=== PATIENT | male | born 1950 ===

== ENCOUNTER 2024-05-29 12:18 | Day surgery (SDC) | payer OTHER ==
[2024-05-29] MEDS: LACTATED RINGERS 1,000 ML IV ONE (12:51)
[2024-05-29] MEDS ORDERED: PROPOFOL 500 MG/50 ML 500 MG/50 ML VIAL ONE (14:26)
--- NOTE | 2024-05-29 14:31 | ANESTHESIA ---
Pre-Anesthesia VS, & Labs - Diagnosis screening - Procedure colonoscopy Vital Signs: Temp Pulse Resp BP Pulse Ox O2 Flow Rate 36.4 C L 80 18 148/91 H 98 05/29/24 12:30 05/29/24 12:30 05/29/24 12:30 05/29/24 12:30 05/29/24 12:30 Height: 6 ft Weight (kg): 93.8 kg Body Mass Index: 28.0 BMI Classification: Overweight - NPO >8 hours Home Medications and Allergies Home Medications: Ambulatory Orders Aspirin [Adult Aspirin Regimen] 81 mg PO DAILY 05/29/24 Aspirin [Adult Aspirin Regimen] 81 mg PO DAILY 05/29/24 Allergies/Adverse Reactions: Allergies Allergy/AdvReac Type Severity Reaction Status Date / Time No Known Drug Allergies Allergy Verified 05/28/24 13:35 Anes History & Medical History - Anesthetic History Anesthesia Complications: reports: No previous complications Family history of Anesthesia Complications: Denies Family history of Malignant Hyperthermia: Denies - Medical History Cardiovascular: reports: None Pulmonary: reports: None Gastrointestinal: reports: None Urinary: reports: Benign prostate hypertrophy Musculoskeletal: reports: Osteoarthritis Endocrine/Autoimmune: reports: None Skin: reports: Eczema Psychosocial: reports: No issues indicated History of Cancer?: No - Surgical History General: reports: Appendectomy, Colonoscopy Eyes Ears Nose Throat (EENT): reports: Tonsil/Adenoidectomy Exam General: Alert, Oriented x3, Cooperative Dental: WNL Mouth Openin Fingerbreadth Neck Mobility: Normal Mallampati classification: I Thyromental Distance: 4-6 cm Respiratory: Lungs clear Cardiovascular: Regular rate Plan Anesthesia Type: General, Total IV Consent for Procedure(s) Verified and Reviewed: Yes Code Status: Attempt Resuscitation ASA classification: 2-Mild systemic disease Is this case an emergency?: No
[2024-05-29] MEDS: LACTATED RINGERS 250 ML IV ONE (15:51)
[2024-05-29 16:35] VITALS: BP 138/79; O2SAT 96
--- NOTE | 2024-05-29 19:13 | ANESTHESIA POST OP EVALUATION ---
Anesthesia Post Eval - Post Anesthesia Eval Vitals: Last Vital Signs Temp 36.0 C L 05/29/24 16:01 Pulse 88 05/29/24 16:21 Resp 16 05/29/24 16:21 BP 138/79 H 05/29/24 16:21 Pulse Ox 96 05/29/24 16:21 O2 Flow Rate CV Function Including HR & BP: Stable Pain Control: Satisfactory Nausea & Vomiting: Negative Mental Status: Baseline Respiratory Status: Airway Patent Hydration Status: Satisfactory Anesthesia Complications: None
== END 2024-05-29 12:19 | disposition home or self-care (01) ==
LOC: SDS 12:18
PROVIDERS: ATTEND Surgery
PROC: 0DBM8ZZ Excision of Descending Colon, Via Natural or Artificial Opening Endoscopic (ICD-10-PCS; principal; 2024-05-29 13:45)
DX: Z12.11 Encounter for screening for malignant neoplasm of colon (principal); D12.4 Benign neoplasm of descending colon; Z80.0 Family history of malignant neoplasm of digestive organs; Z83.719 Family history of colon polyps, unspecified; N40.0 Benign prostatic hyperplasia without lower urinary tract symptoms
CPT/HCPCS: 45385; J7120